=== PATIENT | female | born 1960 | race Caucasian/White ===

== ENCOUNTER 2017-09-16 09:05 | Emergency (ER) | payer OTHER ==
[~2017-09-16] VITALS: Ht 172.7 cm; Wt 113.5 kg
[~2017-09-16 09:05] MED LIST: ALBUTEROL SULF8.5 GM IH; CLARITIN,ALAVAR10 MG PO; FLEXERIL10 MG PO; INDOCIN50 MG PO; LIDODERM 5% P1 PATCH TD; NAPROXEN500 MG PO; NOHOMEMEDS; NORCO 5/3251 TABLET PO; PREDNISONE20 MG PO; PREDNISONE50 MG PO; TESSALON PERLE100 MG PO; ULTRAM50 MG PO; ZITHROMAX Z-PA250 MG PO
[2017-09-16 10:40] LABS: ADD MIUA? YES; BILIRUBIN NEGATIVE; BLOOD SMALL; COLOR YELLOW ((YELLOW)); GLUCOSE (STRIP) NEGATIVE; KETONES NEGATIVE; LEUKOCYTES TRACE; NITRITE NEGATIVE; PROTEIN (STRIP) NEGATIVE; SPECIFIC GRAVITY 1.017 (1.000-1.030); UROBILINOGEN 0.2 MG/DL (0.2-1.0)
[2017-09-16 10:44] LABS: BACTERIA NONE SEEN /HPF; EPITHELIAL CELLS 1+ /HPF; MUCUS TRACE /LPF; RED BLOOD CELLS 0-5 /HPF (0-5); UCUL ADDED? NO; WHITE BLOOD CELLS 0-5 /HPF (0-5)
[2017-09-16] MEDS ORDERED: FLEXERIL10 MG PO (11:50)
[2017-09-16] MEDS ORDERED: PERCOCET 5/31 TABLET PO (11:50)
[2017-09-16 12:26] VITALS: BP 150/74
== END 2017-09-16 12:26 | disposition home or self-care (01) ==
LOC: EME 09:05
PROVIDERS: Emergency Medicine
DX: S39.012A Strain of muscle, fascia and tendon of lower back, initial encounter (principal); X58.XXXA Exposure to other specified factors, initial encounter; K57.30 Diverticulosis of large intestine without perforation or abscess without bleeding; K44.9 Diaphragmatic hernia without obstruction or gangrene; Z87.891 Personal history of nicotine dependence
CPT/HCPCS: 74176; 81003; 99281; 99283; J1885